=== PATIENT | male | born 1980 | race Caucasian/White ===

== ENCOUNTER 2018-01-28 11:49 | Emergency (ER) | payer OTHER ==
[~2018-01-28] VITALS: Ht 175.3 cm; Wt 73.0 kg
[2018-01-28 14:32] VITALS: BP 124/80
== END 2018-01-28 14:44 | disposition designated cancer center or children's hospital (05) | DRG 923 ==
LOC: ED 11:49
DX: T76.21XA Adult sexual abuse, suspected, initial encounter (principal); F17.290 Nicotine dependence, other tobacco product, uncomplicated